=== PATIENT | male | born 1995 | race African-American/Black ===

== ENCOUNTER 2017-11-06 21:16 | Inpatient (IN) ==
[2017-11-06] MEDS ORDERED: NALOXONE 0.4 MG/ML VIAL IV STA ×2 (22:01→22:02)
[2017-11-06] MEDS ORDERED: FLUMAZENIL 1 MG/10 ML VIAL IV STA (22:02)
[2017-11-06] MEDS ORDERED: FLUMAZENIL 0.5 MG/5 ML VIAL IV ONE (22:25)
[2017-11-06] MEDS ORDERED: NALOXONE 0.4 MG/ML VIAL ONE (22:25)
[2017-11-06 22:28] LABS: Basophils % 0.5 % (0.0-0.8); Eosinophils # 0.1 10*3/uL (0.0-0.87); Eosinophils % 1.3 % (0.00-10.9); Hematocrit 41.4 VOL% (42.0-52.0); Hemoglobin 13.7 GM/DL (14.0-18.0); Immature Granulocytes % 0.4 %; Immature Granulocytes Absolute 0.03 #; Lymphocytes # 3.2 10*3/uL (1.4-4.0); Lymphocytes % 43.3 % (21.2-54.2); Mean Corpuscular HGB Conc 33.1 GM/DL (32-36); Mean Corpuscular Hemoglobin 34 PG (27-34); Mean Platelet Volume 10.3 FL (9.6-12.0); Monocytes # 0.6 10*3/uL (0.11-0.8); Monocytes % 8.5 % (1.7-12.7); Neutrophils # 3.4 10*3/uL (1.4-7.4); Platelet Count 246 T/CUMM (130-400); Red Blood Count 3.98 MC/CUMM (3.8-5.5); Red Cell Distribution Width 11.8 % (9.3-17.3); White Blood Count 7.4 T/CUMM (4-12)
[2017-11-06 22:29] LABS: VBG Base Excess -1.7 MEQ/L (0-4); VBG HCO3 24.5 MEQ/L (24-28); VBG PCO2 47.1 MMHG (41-51); VBG PH 7.334; VBG PO2 80.3 MMHG (17-40)
[2017-11-06 22:53] LABS: Alanine Aminotransferase 15 U/L (16-61); Albumin 3.7 G/DL (3.4-5.0); Alkaline Phosphatase 101 U/L (45-117); Aspartate Amino Transferase 22 U/L (0-37); Bilirubin,Total < 0.39 MG/DL (0.2-1.0); Blood Urea Nitrogen 6 MG/DL (7-18); Calcium 7.8 MG/DL (8.5-10.1); Glucose 265 MG/DL (74-106); Osmolality,Calculated 285.4 MOS/KG (273-304); Potassium 3.6 MMOL/L (3.5-5.1); Sodium 140 MMOL/L (136-145); Total Protein 6.5 G/DL (6.4-8.3)
[2017-11-06 23:16] LABS: Apearance,Urine CLEAR (Clear); Bilirubin,Urine Negative (Negative); Blood, Urine Negative (Negative); Glucose,Urine (UA) >=500 mg/dL (Negative); Ketones,Urine Negative (Negative); Nitrite,Urine Negative (Negative); Protein,Urine 30 MG/DL; RBC,Urine 1 /HPF (0-4); Squamous Epithelial Cell,Urine Occasional /HPF (0-10); Urine Color Straw (Yellow); Urine Specific Gravity 1.037 (1.001-1.035); Urine Urobilinogen < 2.0 EU/DL (0.2-1.0); WBC,Urine 4 /HPF (0-6)
[2017-11-06 23:20] LABS: Barbiturates Screen,Urine Negative (Negative); Benzodiazepines Screen,Urine Negative (Negative); Cannabinoid Screen,Urine Positive (Negative); Opiate Screen,Urine Negative (Negative); Phencyclidine Screen,Urine Negative (Negative)
[2017-11-07] MEDS ORDERED: GLUCAGON 1 MG VIAL IM PRN (01:11)
[2017-11-07] MEDS ORDERED: DEXTROSE 50% 25 GM/50 ML VIAL IV PRN (01:11)
[2017-11-07] MEDS ORDERED: MULTIVITAMIN INJ 10 ML in SODIUM CHLORIDE 0.9% 1,000 ML IV SCH (01:30)
[2017-11-07 05:35] LABS: Basophils % 0.2 % (0.0-0.8); Eosinophils % 0.2 % (0.00-10.9); Hematocrit 37.7 VOL% (42.0-52.0); Hemoglobin 12.7 GM/DL (14.0-18.0); Immature Granulocytes % 0.5 %; Immature Granulocytes Absolute 0.03 #; Lymphocytes % 17.7 % (21.2-54.2); Mean Corpuscular HGB Conc 33.7 GM/DL (32-36); Mean Corpuscular Hemoglobin 34 PG (27-34); Mean Corpuscular Volume 102.2 FL (87-102); Mean Platelet Volume 10.8 FL (9.6-12.0); Monocytes # 0.4 10*3/uL (0.11-0.8); Monocytes % 6.2 % (1.7-12.7); Neutrophils # 4.4 10*3/uL (1.4-7.4); Neutrophils % 75.2 % (38.7-73.9); Platelet Count 222 T/CUMM (130-400); Red Blood Count 3.69 MC/CUMM (3.8-5.5); Red Cell Distribution Width 11.6 % (9.3-17.3); White Blood Count 5.8 T/CUMM (4-12)
[2017-11-07 06:11] LABS: Alanine Aminotransferase 17 U/L (16-61); Albumin 3.5 G/DL (3.4-5.0); Alkaline Phosphatase 92 U/L (45-117); Aspartate Amino Transferase 17 U/L (0-37); Bilirubin,Total < 0.39 MG/DL (0.2-1.0); Blood Urea Nitrogen 7 MG/DL (7-18); Calcium 8.2 MG/DL (8.5-10.1); Glucose 229 MG/DL (74-106); Osmolality,Calculated 287.1 MOS/KG (273-304); Potassium 4.1 MMOL/L (3.5-5.1); Sodium 142 MMOL/L (136-145); Total Protein 6.1 G/DL (6.4-8.3)
[2017-11-07] MEDS: INSULIN LISPRO 100 UNIT/ML SUBCUT SCH ×3 (06:30→17:28)
[2017-11-07] MEDS ORDERED: ENOXAPARIN 40 MG/0.4 ML SYRINGE SUBCUT SCH (09:00)
[2017-11-07] MEDS ORDERED: THIAMINE 200 MG/2 ML VIAL IV SCH (09:00)
[2017-11-07] MEDS ORDERED: ACETAMINOPHEN 325 MG TABLET PO PRN (15:59)
[2017-11-07] MEDS ORDERED: NICOTINE 21 MG/24 HR PATCH TRANSDERM SCH (16:00)
[2017-11-08] MEDS: INSULIN LISPRO 100 UNIT/ML SUBCUT SCH ×2 (01:26→06:59)
[2017-11-08 08:16] VITALS: BP 140/81
== END 2017-11-08 08:26 | disposition home or self-care (01) | DRG 918 ==
LOC: EDBD → N.ED 21:16 → N.EDINP 11-07 00:54 → SUATTDRO 11-07 00:54 → N.TELEN 11-07 01:42
PROVIDERS: ADMIT Internal Medicine; ATTEND Internal Medicine

== ENCOUNTER 2019-08-10 10:59 | Inpatient (IN) ==
[2019-08-10] MEDS ORDERED: ONDANSETRON 4 MG/2 ML VIAL IV STA (11:15)
[2019-08-10] MEDS ORDERED: SODIUM CHLORIDE 0.9% 1,000 ML IV STA (11:15)
[2019-08-10] MEDS ORDERED: INSULIN REGULAR 100 UNIT/ML IV ONE ×2 (11:15→12:42)
[2019-08-10 11:26] LABS: Basophils # 0.1 10*3/uL (0.0-0.2); Basophils % 0.4 % (0.0-0.8); Eosinophils % 0.1 % (0.00-10.9); Hematocrit 47.3 VOL% (42.0-52.0); Hemoglobin 14.9 GM/DL (14.0-18.0); Immature Granulocytes % 5.1 %; Immature Granulocytes Absolute 1.47 #; Lymphocytes # 4.1 10*3/uL (1.4-4.0); Lymphocytes % 14.3 % (21.2-54.2); Mean Corpuscular HGB Conc 31.5 GM/DL (32-36); Mean Corpuscular Volume 109.7 FL (87-102); Mean Platelet Volume 9.8 FL (9.6-12.0); Monocytes % 6.6 % (1.7-12.7); Neutrophils % 73.5 % (38.7-73.9); Platelet Count 373 T/CUMM (130-400); Red Blood Count 4.31 MC/CUMM (3.8-5.5); Red Cell Distribution Width 11.9 % (9.3-17.3); White Blood Count 28.7 T/CUMM (4-12)
[2019-08-10 11:47] LABS: Albumin 4.1 G/DL (3.4-5.0); Bilirubin,Total 0.5 MG/DL (0.2-1.0); Osmolality,Calculated 318.5 MOS/KG (273-304); Total Protein 7.8 G/DL (6.4-8.3)
[2019-08-10 11:51] LABS: Band Neutrophils 16 % (0-10); Lymphocytes 14 % (20-55); Macrocytosis 1+; Platelet Estimate Normal; Segmented Neutrophils 60 % (50-85); Total Cells Counted 100
[2019-08-10 11:52] LABS: Anisocytosis 1+
[2019-08-10 11:54] LABS: Calcium 9.7 MG/DL (8.5-10.1)
[2019-08-10 12:01] LABS: Apearance,Urine CLEAR (Clear); Bilirubin,Urine Negative (Negative); Blood, Urine Moderate mg/dL (Negative); Glucose,Urine (UA) >=500 mg/dL (Negative); Hyaline Casts,Urine 1 /LPF (0-3); Ketones,Urine 80 mg/dL (Negative); Mucus,Urine Occasional /LPF (Occasional); Nitrite,Urine Negative (Negative); Protein,Urine 30 MG/DL; RBC,Urine 3 /HPF (0-4); Urine Color Straw (Yellow); Urine Specific Gravity 1.023 (1.001-1.035); Urine Urobilinogen < 2.0 EU/DL (0.2-1.0); WBC,Urine <1 /HPF (0-6)
[2019-08-10 12:30] LABS: Barbiturates Screen,Urine Negative (Negative); Benzodiazepines Screen,Urine Negative (Negative); Cannabinoid Screen,Urine Negative (Negative); Opiate Screen,Urine Negative (Negative); Phencyclidine Screen,Urine Negative (Negative)
[2019-08-10] MEDS ORDERED: MAGNESIUM SULF RIDER 4 GM in PREMIX 1 EACH IV PRN (12:42)
[2019-08-10] MEDS ORDERED: SODIUM BICARB INJ 100 MEQ in STERILE WATER INJ 400 ML IV PRN (12:42)
[2019-08-10] MEDS ORDERED: MORPHINE 4 MG/1 ML VIAL IV PRN (12:42)
[2019-08-10] MEDS ORDERED: SODIUM CHLORIDE 0.9% 1,000 ML IV ONE (12:42)
[2019-08-10] MEDS ORDERED: SODIUM PHOSPHATE IV PRN (12:42)
[2019-08-10] MEDS ORDERED: MAGNESIUM SULF RIDER 2 GM in PREMIX 1 EACH IV PRN (12:42)
[2019-08-10] MEDS ORDERED: SODIUM CHLORIDE 0.9% IV PRN (12:42)
[2019-08-10] MEDS ORDERED: DEXTROSE 50% 25 GM/50 ML VIAL IV PRN (12:42)
[2019-08-10] MEDS ORDERED: ALBUTEROL 2.5 MG/3 ML NEB RESP TX PRN (12:42)
[2019-08-10] MEDS ORDERED: ACETAMINOPHEN 325 MG TABLET PO PRN (12:42)
[2019-08-10] MEDS ORDERED: ONDANSETRON 4 MG/2 ML VIAL IV PRN (12:42)
[2019-08-10] MEDS: cefTRIAXone 1,000 MG in SYRINGE 1 EACH IV SCH (13:17)
[2019-08-10] MEDS ORDERED: SODIUM BICARBONATE 50 MEQ/50 ML VIAL IV ONE ×2 (14:00→15:30)
[2019-08-10 14:51] LABS: ABG Base Excess -22.5 MMOL/L (-2.5-2.5); ABG Oxygen Saturation 98.4 % (95-100); ABG TCO2 4.8 MMOL/L (23-27); Pt O2 Delivery Device Room Air
[2019-08-10 14:53] LABS: ABG PH 7.175 (7.35-7.45)
[2019-08-10 14:55] LABS: ABG PCO2 14.4 MM HG (35-48)
[2019-08-10] MEDS: INSULIN REGULAR DRIP 100 ML IV SCH (15:16)
[2019-08-10] MEDS: SODIUM CHLORIDE 0.9% 1,000 ML IV SCH ×2 (15:55→17:27)
[2019-08-10 17:16] LABS: ABG HCO3 13.2 MMOL/L (20-26); ABG PH 7.331 (7.35-7.45); ABG TCO2 8.3 MMOL/L (23-27); Allen Test Positive; Pt O2 Delivery Device Room Air
[2019-08-10 17:22] LABS: ABG PCO2 17.7 MM HG (35-48)
[2019-08-10 17:34] LABS: Calcium 8.4 MG/DL (8.5-10.1)
[2019-08-10] MEDS ORDERED: SODIUM CHLORIDE 0.9% 1,000 ML IV SCH (17:42)
[2019-08-10] MEDS ORDERED: PANTOPRAZOLE 40 MG VIAL IV SCH (21:00)
[2019-08-10 21:31] LABS: Calcium 8.2 MG/DL (8.5-10.1); Osmolality,Calculated 295.1 MOS/KG (273-304)
[2019-08-10] MEDS: DEXT 5% NACL 0.45% KCL 20 MEQ 20 MEQ/1,000 ML BAG IV SCH (22:18)
[2019-08-11 01:08] LABS: Osmolality,Calculated 296.8 MOS/KG (273-304)
[2019-08-11] MEDS: DEXT 5% NACL 0.45% KCL 20 MEQ 20 MEQ/1,000 ML BAG IV SCH ×2 (02:28→18:38)
[2019-08-11] MEDS ORDERED: SODIUM CHLORIDE 0.45% 1,000 ML IV SCH (05:42)
[2019-08-11 06:01] LABS: Basophils % 0.2 % (0.0-0.8); Eosinophils # 0.1 10*3/uL (0.0-0.87); Eosinophils % 0.5 % (0.00-10.9); Hematocrit 32.6 VOL% (42.0-52.0); Hemoglobin 11.2 GM/DL (14.0-18.0); Immature Granulocytes % 0.5 %; Immature Granulocytes Absolute 0.05 #; Lymphocytes # 1.1 10*3/uL (1.4-4.0); Lymphocytes % 10.3 % (21.2-54.2); Mean Corpuscular HGB Conc 34.4 GM/DL (32-36); Mean Corpuscular Volume 98.5 FL (87-102); Mean Platelet Volume 9.4 FL (9.6-12.0); Monocytes % 8.6 % (1.7-12.7); Neutrophils % 79.9 % (38.7-73.9); Platelet Count 243 T/CUMM (130-400); Red Blood Count 3.31 MC/CUMM (3.8-5.5); Red Cell Distribution Width 11.1 % (9.3-17.3); White Blood Count 10.9 T/CUMM (4-12)
[2019-08-11 06:16] LABS: Calcium 8.6 MG/DL (8.5-10.1); Osmolality,Calculated 290.7 MOS/KG (273-304)
[2019-08-11] MEDS: POTASSIUM CHLORIDE RIDER 10 MEQ in PREMIX 1 EACH IV PRN ×2 (06:36→08:28)
[2019-08-11] MEDS ORDERED: DEXTROSE 10% 250 ML IV ONE (07:29)
[2019-08-11] MEDS: DEXTROSE 10% 25 GM/250 ML BAG IV PRN ×2 (07:30→07:34)
[2019-08-11] MEDS ORDERED: DEXTROSE 5% NACL 0.45% 1,000 ML IV SCH (08:00)
[2019-08-11 08:02] LABS: ABG Base Excess -5.2 MMOL/L (-2.5-2.5); ABG HCO3 18.4 MMOL/L (20-26); ABG Oxygen Saturation 97.5 % (95-100); ABG PCO2 29.8 MM HG (35-48); ABG PH 7.409 (7.35-7.45); ABG PO2 100.4 MM HG (80-95); ABG TCO2 19.3 MMOL/L (23-27); Allen Test Positive; Pt O2 Delivery Device Room Air
[2019-08-11 08:55] LABS: Calcium 8.5 MG/DL (8.5-10.1); Osmolality,Calculated 286.1 MOS/KG (273-304)
[2019-08-11] MEDS: INSULIN REGULAR DRIP 100 ML IV SCH (10:38)
[2019-08-11] MEDS ORDERED: GLUCAGON 1 MG VIAL IM PRN (11:55)
[2019-08-11] MEDS ORDERED: DEXTROSE 50% 25 GM/50 ML VIAL IV PRN (11:55)
[2019-08-11] MEDS ORDERED: INSULIN NPH/REGULAR 70/30 100 UNIT/ML SUBCUT SCH ×3 (12:30→19:00)
[2019-08-11] MEDS: cefTRIAXone 1,000 MG in SYRINGE 1 EACH IV SCH (13:08)
[2019-08-11] MEDS ORDERED: POTASSIUM PHOSPHATE 30 MMOL in SODIUM CHLORIDE 0.9% 250 ML IV ONE (15:00)
[2019-08-11] MEDS: INSULIN REGULAR 100 UNIT/ML SUBCUT SCH ×3 (15:02→22:09)
[2019-08-12] MEDS: INSULIN REGULAR 100 UNIT/ML SUBCUT SCH ×3 (06:19→09:16)
[2019-08-12 06:58] LABS: Calcium 8.7 MG/DL (8.5-10.1); Osmolality,Calculated 276.7 MOS/KG (273-304)
[2019-08-12 08:00] VITALS: BP 125/90
[2019-08-12] MEDS ORDERED: INSULIN NPH/REGULAR 70/30 100 UNIT/ML SUBCUT SCH (09:00)
== END 2019-08-12 09:35 | disposition home or self-care (01) | DRG 638 ==
LOC: EDBD → EDUNIT# → N.ED 10:59 → N.EDINP 12:42 → SUATTDRO 12:42 → N.CC 14:05
PROVIDERS: ADMIT Internal Medicine; ATTEND Hospitalist

== ENCOUNTER 2022-05-06 13:29 | Observation (INO) ==
[2022-05-06 15:31] LABS: Hyaline Casts,Urine 39 /LPF (0-3); Mucus,Urine Many /LPF (Occasional); RBC,Urine 2 /HPF (0-4); Squamous Epithelial Cell,Urine Occasional /HPF (0-10)
[2022-05-06 15:32] LABS: Bilirubin,Urine Large mg/dL (Negative); Blood, Urine Negative (Negative); Glucose,Urine (UA) >=1000 mg/dL (Negative); Ketones,Urine 15 mg/dL (Negative); Nitrite,Urine Negative (Negative); Protein,Urine 100 mg/dL (Negative); Urine Appearance Clear (Clear); Urine Color Dark Yellow (Yellow); Urine Specific Gravity >= 1.030 (1.001-1.035); Urine Urobilinogen 0.2 eU/dL (<2.0); Urine pH 5.5 (4.5-8.0)
[2022-05-06] MEDS ORDERED: PANTOPRAZOLE 40 MG VIAL IV STA (15:35)
[2022-05-06] MEDS ORDERED: ONDANSETRON 4 MG/2 ML VIAL IV ONE (15:35)
[2022-05-06] MEDS ORDERED: SODIUM CHLORIDE 0.9% 1,000 ML IV STA (15:35)
[2022-05-06 15:39] LABS: Barbiturates Screen,Urine Negative (Negative); Benzodiazepines Screen,Urine Negative (Negative); Cannabinoid Screen,Urine Positive (Negative); Opiate Screen,Urine Negative (Negative); Phencyclidine Screen,Urine Negative (Negative)
[2022-05-06 16:13] LABS: Basophils % 0.2 % (0.0-0.8); Hematocrit 47.9 VOL% (42.0-52.0); Immature Granulocytes % 0.5 %; Immature Granulocytes Absolute 0.07 #; Lymphocytes # 1.7 10*3/uL (1.4-4.0); Lymphocytes % 13.1 % (21.2-54.2); Mean Corpuscular HGB Conc 33.4 GM/DL (32-36); Mean Corpuscular Volume 103.5 FL (87-102); Mean Platelet Volume 9.9 FL (9.6-12.0); Monocytes # 0.8 10*3/uL (0.11-0.8); Monocytes % 6.5 % (1.7-12.7); Neutrophils % 79.7 % (38.7-73.9); Platelet Count 511 T/CUMM (130-400); Red Blood Count 4.63 MC/CUMM (3.8-5.5); Red Cell Distribution Width 13.1 % (9.3-17.3); White Blood Count 12.8 T/CUMM (4-12)
[2022-05-06 16:20] LABS: Albumin 4.2 G/DL (3.4-5.0); Bilirubin,Total 1.1 MG/DL (0.20-1.00); Calcium 10.5 MG/DL (8.5-10.1); Osmolality,Calculated 278.4 MOS/KG (273-304); Potassium 5.7 MMOL/L (3.5-5.1); Total Protein 9.3 G/DL (6.4-8.2)
[2022-05-06] MEDS ORDERED: hydrALAZINE 20 MG/1 ML VIAL IV PRN (17:47)
[2022-05-06] MEDS ORDERED: ONDANSETRON 4 MG/2 ML VIAL IV PRN (17:47)
[2022-05-06] MEDS ORDERED: GLUCAGON 1 MG VIAL IM PRN (17:47)
[2022-05-06] MEDS ORDERED: PROMETHAZINE 25 MG/1 ML VIAL IM PRN (17:47)
[2022-05-06] MEDS ORDERED: DOCUSATE SODIUM 100 MG CAPSULE PO PRN (17:47)
[2022-05-06] MEDS ORDERED: ACETAMINOPHEN 325 MG TABLET PO PRN (17:47)
[2022-05-06] MEDS ORDERED: ALBUTEROL/IPRATROPIUM 3 ML NEB RESP TX PRN (17:47)
[2022-05-06] MEDS ORDERED: DEXTROSE 10% 250 ML BAG IV PRN (17:47)
[2022-05-06] MEDS: SODIUM CHLORIDE 0.9% 1,000 ML IV SCH (18:16)
[2022-05-06] MEDS ORDERED: ENOXAPARIN 40 MG/0.4 ML SYRINGE ONE (18:17)
[2022-05-06 18:41] LABS: Amylase 84 U/L (25-115)
[2022-05-06] MEDS: ENOXAPARIN 40 MG/0.4 ML SYRINGE SUBCUT SCH (18:53)
[2022-05-06] MEDS: INSULIN REGULAR 100 UNIT/ML SUBCUT SCH (21:02)
[2022-05-07 05:44] LABS: Basophils % 0.2 % (0.0-0.8); Eosinophils % 0.2 % (0.00-10.9); Hematocrit 37.3 VOL% (42.0-52.0); Hemoglobin 12.3 GM/DL (14.0-18.0); Immature Granulocytes % 0.5 %; Immature Granulocytes Absolute 0.05 #; Lymphocytes # 2.1 10*3/uL (1.4-4.0); Lymphocytes % 22.1 % (21.2-54.2); Mean Platelet Volume 9.7 FL (9.6-12.0); Monocytes # 0.8 10*3/uL (0.11-0.8); Monocytes % 8.9 % (1.7-12.7); Neutrophils % 68.1 % (38.7-73.9); Platelet Count 369 T/CUMM (130-400); Red Blood Count 3.52 MC/CUMM (3.8-5.5); Red Cell Distribution Width 12.8 % (9.3-17.3); White Blood Count 9.5 T/CUMM (4-12)
[2022-05-07 06:13] LABS: Albumin 2.9 G/DL (3.4-5.0); Bilirubin,Total 0.9 MG/DL (0.20-1.00); Calcium 8.2 MG/DL (8.5-10.1); Osmolality,Calculated 292.1 MOS/KG (273-304); Potassium 3.9 MMOL/L (3.5-5.1); Risk Ratio 5.24; Thyroid Stimulating Hormone 0.677 uIU/ml (0.358-3.74); Total Protein 6.3 G/DL (6.4-8.2)
[2022-05-07] MEDS ORDERED: PANTOPRAZOLE 40 MG TABLET PO SCH (06:30)
[2022-05-07] MEDS: SODIUM CHLORIDE 0.9% 1,000 ML IV SCH ×3 (08:32→17:21)
[2022-05-07] MEDS: INSULIN NPH/REGULAR 70/30 100 UNIT/ML SUBCUT SCH (08:35)
[2022-05-07] MEDS: INSULIN REGULAR 100 UNIT/ML SUBCUT SCH ×4 (08:36→20:51)
[2022-05-07] MEDS ORDERED: INSULIN GLARGINE 100 UNIT/ML SUBCUT ONE (10:00)
[2022-05-07] MEDS: PANTOPRAZOLE 40 MG VIAL IV SCH (20:50)
[2022-05-07] MEDS: ENOXAPARIN 40 MG/0.4 ML SYRINGE SUBCUT SCH (20:50)
[2022-05-08] MEDS: SODIUM CHLORIDE 0.9% 1,000 ML IV SCH (02:28)
[2022-05-08 06:02] LABS: Basophils % 0.5 % (0.0-0.8); Eosinophils % 0.3 % (0.00-10.9); Hematocrit 37.6 VOL% (42.0-52.0); Hemoglobin 12.3 GM/DL (14.0-18.0); Immature Granulocytes % 0.7 %; Immature Granulocytes Absolute 0.04 #; Lymphocytes # 1.8 10*3/uL (1.4-4.0); Lymphocytes % 29.1 % (21.2-54.2); Mean Corpuscular HGB Conc 32.7 GM/DL (32-36); Mean Corpuscular Volume 104.7 FL (87-102); Mean Platelet Volume 9.8 FL (9.6-12.0); Monocytes # 0.5 10*3/uL (0.11-0.8); Monocytes % 7.6 % (1.7-12.7); Neutrophils % 61.8 % (38.7-73.9); Platelet Count 393 T/CUMM (130-400); Red Blood Count 3.59 MC/CUMM (3.8-5.5); White Blood Count 6.1 T/CUMM (4-12)
[2022-05-08 06:15] LABS: Bilirubin,Total 1.2 MG/DL (0.20-1.00); Calcium 9.1 MG/DL (8.5-10.1); Osmolality,Calculated 284.5 MOS/KG (273-304); Potassium 4.2 MMOL/L (3.5-5.1); Total Protein 6.4 G/DL (6.4-8.2)
[2022-05-08 07:26] VITALS: BP 141/91
[2022-05-08] MEDS ORDERED: lisinopriL 5 MG TABLET PO SCH ×2 (07:41→08:00)
[2022-05-08] MEDS ORDERED: lisinopriL 20 MG TABLET PO SCH (08:00)
[2022-05-08] MEDS: INSULIN NPH/REGULAR 70/30 100 UNIT/ML SUBCUT SCH (08:05)
[2022-05-08] MEDS: INSULIN REGULAR 100 UNIT/ML SUBCUT SCH (08:06)
[2022-05-08] MEDS: PANTOPRAZOLE 40 MG VIAL IV SCH (08:39)
== END 2022-05-08 10:31 | disposition home or self-care (01) ==
LOC: N.EDINP 13:29 → N.ED 13:29 → SUATTDRO 17:47 → N.5E 18:30
PROVIDERS: ADMIT Internal Medicine; ATTEND Family Medicine

== ENCOUNTER 2022-08-04 16:41 | Observation (INO) ==
[2022-08-04] MEDS ORDERED: SODIUM CHLORIDE 0.9% 2,000 ML IV STA (17:38)
[2022-08-04] MEDS ORDERED: ONDANSETRON 4 MG/2 ML VIAL IV STA (17:44)
[2022-08-04 17:48] LABS: Basophils % 0.5 % (0.0-0.8); Eosinophils % 0.3 % (0.00-10.9); Hematocrit 47.7 VOL% (42.0-52.0); Hemoglobin 16.1 GM/DL (14.0-18.0); Immature Granulocytes % 0.5 %; Immature Granulocytes Absolute 0.04 #; Lymphocytes # 2.3 10*3/uL (1.4-4.0); Lymphocytes % 26.9 % (21.2-54.2); Mean Corpuscular HGB Conc 33.8 GM/DL (32-36); Mean Corpuscular Volume 102.8 FL (87-102); Mean Platelet Volume 9.8 FL (9.6-12.0); Monocytes # 0.4 10*3/uL (0.11-0.8); Monocytes % 4.5 % (1.7-12.7); Neutrophils % 67.3 % (38.7-73.9); Platelet Count 380 T/CUMM (130-400); Red Blood Count 4.64 MC/CUMM (3.8-5.5); White Blood Count 8.6 T/CUMM (4-12)
[2022-08-04 18:09] LABS: Albumin 4.5 G/DL (3.4-5.0); Bilirubin,Total 1.1 MG/DL (0.20-1.00); Calcium 10.1 MG/DL (8.5-10.1); Osmolality,Calculated 297.7 MOS/KG (273-304); Potassium 4.1 MMOL/L (3.5-5.1); Total Protein 8.6 G/DL (6.4-8.2)
[2022-08-04 18:37] LABS: Arterial Base Excess iSTAT -3 MMOL/L (-2.5-2.5); Arterial Bicarbonate iSTAT 20.7 MMOL/L (20-26); Arterial O2 Saturation iSTAT 98 % (95-100); Arterial PCO2 iSTAT 33 MM HG (35-48); Arterial PO2 iSTAT 99 MM HG (80-95); Arterial Total CO2 iSTAT 22 MMO/L (23-27)
[2022-08-04] MEDS ORDERED: ACETAMINOPHEN 325 MG TABLET PO PRN (19:35)
[2022-08-04] MEDS ORDERED: ONDANSETRON 4 MG/2 ML VIAL IV PRN (19:35)
[2022-08-04] MEDS ORDERED: DEXTROSE 50% 25 GM/50 ML VIAL IV PRN (19:35)
[2022-08-04] MEDS ORDERED: DEXTROSE 10% 250 ML BAG IV PRN (19:35)
[2022-08-04] MEDS ORDERED: GLUCAGON 1 MG VIAL IM PRN (19:35)
[2022-08-04 20:10] LABS: Glucose,Urine (UA) 500 mg/dL (Negative); Protein,Urine Negative (Negative); Urine Appearance Clear (Clear); Urine Color Yellow (Yellow); Urine pH 5.5 (4.5-8.0)
[2022-08-04 20:11] LABS: Bilirubin,Urine Moderate mg/dL (Negative); Blood, Urine Trace mg/dL (Negative); Ketones,Urine >=160 mg/dL (Negative); Nitrite,Urine Negative (Negative); Urine Urobilinogen 0.2 eU/dL (<2.0)
[2022-08-04 20:14] LABS: RBC,Urine 1 /HPF (0-4)
[2022-08-04 20:33] LABS: Barbiturates Screen,Urine Negative (Negative); Benzodiazepines Screen,Urine Negative (Negative); Cannabinoid Screen,Urine Positive (Negative); Opiate Screen,Urine Negative (Negative); Phencyclidine Screen,Urine Negative (Negative)
[2022-08-04] MEDS: SODIUM CHLORIDE 0.9% 1,000 ML IV SCH (21:00)
[2022-08-04] MEDS ORDERED: AZITHROMYCIN INJ 500 MG in SODIUM CHLORIDE 0.9% 250 ML IV SCH (21:00)
[2022-08-04] MEDS ORDERED: cefTRIAXone 1,000 MG in SODIUM CHLORIDE 0.9% 100 ML IV SCH (21:00)
[2022-08-04] MEDS: INSULIN LISPRO 100 UNIT/ML SUBCUT SCH (21:13)
[2022-08-04] MEDS: ASCORBIC ACID 500 MG TABLET PO SCH (21:13)
[2022-08-04] MEDS: HEPARIN 5,000 UNIT/1 ML VIAL SUBCUT SCH (21:13)
[2022-08-05 04:12] LABS: Basophils % 0.4 % (0.0-0.8); Eosinophils # 0.1 10*3/uL (0.0-0.87); Eosinophils % 0.9 % (0.00-10.9); Hemoglobin 10.9 GM/DL (14.0-18.0); Immature Granulocytes % 0.4 %; Immature Granulocytes Absolute 0.03 #; Lymphocytes # 2.7 10*3/uL (1.4-4.0); Lymphocytes % 34.3 % (21.2-54.2); Mean Corpuscular Volume 105.8 FL (87-102); Mean Platelet Volume 9.5 FL (9.6-12.0); Monocytes # 0.5 10*3/uL (0.11-0.8); Monocytes % 6.4 % (1.7-12.7); Neutrophils % 57.6 % (38.7-73.9); Platelet Count 268 T/CUMM (130-400); Red Blood Count 3.12 MC/CUMM (3.8-5.5); Red Cell Distribution Width 12.1 % (9.3-17.3); White Blood Count 7.9 T/CUMM (4-12)
[2022-08-05 04:39] LABS: Alanine Aminotransferase 14 U/L (16-61); Alkaline Phosphatase 77 U/L (45-117); Aspartate Amino Transferase 13 U/L (0-37); Bilirubin,Indirect 0.6 MG/DL (0.0-1.0); Blood Urea Nitrogen 36 MG/DL (7-18); Calcium 8.7 MG/DL (8.5-10.1); Carbon Dioxide 21 MMOL/L (21-32); Chloride 108 MMOL/L (98-107); Cholesterol 199 MG/DL (50-200); Ferritin 284.6 ng/mL (26-388); Glucose 181 MG/DL (74-106); HDL Cholesterol 37 MG/DL (40-60); Osmolality,Calculated 287.7 MOS/KG (273-304); Potassium 4.3 MMOL/L (3.5-5.1); Risk Ratio 5.38; Sodium 138 MMOL/L (136-145); Thyroid Stimulating Hormone 0.899 uIU/ml (0.358-3.74); Total Protein 5.7 G/DL (6.4-8.2); Triglycerides 119 MG/DL (2-150); VLDL Cholesterol 23.8 MG/DL
[2022-08-05] MEDS: SODIUM CHLORIDE 0.9% 1,000 ML IV SCH ×2 (05:29→11:57)
[2022-08-05] MEDS: HEPARIN 5,000 UNIT/1 ML VIAL SUBCUT SCH ×3 (05:31→21:21)
[2022-08-05] MEDS: ASCORBIC ACID 500 MG TABLET PO SCH ×2 (09:50→21:20)
[2022-08-05] MEDS: ZINC GLUCONATE 50 MG TABLET PO SCH (09:50)
[2022-08-05] MEDS: INSULIN LISPRO 100 UNIT/ML SUBCUT SCH ×4 (09:50→21:21)
[2022-08-05] MEDS: PANTOPRAZOLE 40 MG TABLET PO SCH (09:50)
[2022-08-05] MEDS: DEXAMETHASONE 4 MG/1 ML VIAL IV SCH (09:50)
[2022-08-05] MEDS: CHOLECALCIFEROL 1,000 UNIT TABLET PO SCH (09:53)
[2022-08-05] MEDS: INSULIN NPH/REG 70/30 100 UNIT/ML SUBCUT SCH ×2 (09:58→21:21)
[2022-08-05] MEDS ORDERED: LACTULOSE 20 GM/30 ML UDCUP PO PRN (11:51)
[2022-08-05] MEDS: DOCUSATE SODIUM 100 MG CAPSULE PO SCH ×2 (12:05→21:21)
[2022-08-05] MEDS: POLYETHYLENE GLYCOL POWDER 17 GM PACK PO SCH (12:05)
[2022-08-05] MEDS ORDERED: SIMVASTATIN 40 MG TABLET PO SCH (21:00)
[2022-08-06] MEDS: SODIUM CHLORIDE 0.9% 1,000 ML IV SCH (05:33)
[2022-08-06] MEDS: HEPARIN 5,000 UNIT/1 ML VIAL SUBCUT SCH (05:35)
[2022-08-06 08:37] LABS: Basophils % 0.4 % (0.0-0.8); Eosinophils # 0.1 10*3/uL (0.0-0.87); Eosinophils % 0.9 % (0.00-10.9); Hematocrit 32.4 VOL% (42.0-52.0); Hemoglobin 10.8 GM/DL (14.0-18.0); Immature Granulocytes % 0.7 %; Immature Granulocytes Absolute 0.05 #; Lymphocytes # 2.7 10*3/uL (1.4-4.0); Lymphocytes % 40.5 % (21.2-54.2); Mean Corpuscular HGB Conc 33.3 GM/DL (32-36); Mean Corpuscular Volume 104.5 FL (87-102); Mean Platelet Volume 9.5 FL (9.6-12.0); Monocytes # 0.4 10*3/uL (0.11-0.8); Monocytes % 5.9 % (1.7-12.7); Neutrophils % 51.6 % (38.7-73.9); Platelet Count 264 T/CUMM (130-400); Red Cell Distribution Width 11.6 % (9.3-17.3); White Blood Count 6.7 T/CUMM (4-12)
[2022-08-06] MEDS: PANTOPRAZOLE 40 MG TABLET PO SCH (08:47)
[2022-08-06] MEDS: INSULIN LISPRO 100 UNIT/ML SUBCUT SCH (08:47)
[2022-08-06] MEDS: INSULIN NPH/REG 70/30 100 UNIT/ML SUBCUT SCH (08:47)
[2022-08-06] MEDS: CHOLECALCIFEROL 1,000 UNIT TABLET PO SCH (08:47)
[2022-08-06] MEDS: DOCUSATE SODIUM 100 MG CAPSULE PO SCH (08:47)
[2022-08-06] MEDS: POLYETHYLENE GLYCOL POWDER 17 GM PACK PO SCH (08:47)
[2022-08-06] MEDS: ASCORBIC ACID 500 MG TABLET PO SCH (08:47)
[2022-08-06] MEDS: DEXAMETHASONE 4 MG/1 ML VIAL IV SCH (08:48)
[2022-08-06 09:06] LABS: Albumin 3.2 G/DL (3.4-5.0); Bilirubin,Total 1.5 MG/DL (0.20-1.00); Calcium 8.7 MG/DL (8.5-10.1); Osmolality,Calculated 279.1 MOS/KG (273-304); Total Protein 6.1 G/DL (6.4-8.2)
[2022-08-06] MEDS ORDERED: hydrALAZINE 20 MG/1 ML VIAL IV ONE (09:34)
[2022-08-06] MEDS: ZINC GLUCONATE 50 MG TABLET PO SCH (09:43)
[2022-08-06 10:09] VITALS: BP 123/86
== END 2022-08-06 10:20 | disposition home or self-care (01) ==
LOC: N.ED 16:41 → N.EDINP 16:41 → SUATTDRO 19:35 → N.TELEN 08-05 04:44
PROVIDERS: ADMIT Internal Medicine; ATTEND Internal Medicine